=== PATIENT | male | born 1965 | race Caucasian/White ===

== ENCOUNTER 2016-11-27 12:26 | Inpatient (IN) | payer MEDICARE ==
[2016-11-27] MEDS ORDERED: ONDANSETRON ODT 4 MG TAB PO PRN (14:37)
[2016-11-27 15:13] LABS: Basophils % (A) 0 %; CH 36.9; CHCM 31.5; Eosinophils # (A) 0.1 k/uL (0-0.7); Eosinophils % (A) 1 %; HCT 32.4 % (39.0-53.0); HDW 2.41; HGB 10.6 gm/dL (13.0-17.5); Hypochromasia Slight; Luc # (Auto) 0.13; Luc % (Auto) 1; Lymphocytes # (A) 1.2 k/uL (1.0-4.8); Lymphocytes % (A) 8 %; MCH 38.5 pg (25.0-35.0); MCHC 32.7 g/dL (31.0-37.0); MCV 117.6 fL (80.0-100.0); Macrocytosis Marked; Mean Platelet Volume 7.8; Monocytes # (A) 0.6 k/uL (0-1.0); Monocytes % (A) 4 %; Neutrophils # (A) 12.8 k/uL (1.3-7.7); Neutrophils % (A) 87 %; RBC 2.76 m/uL (4.30-5.90); RDW 14.6 % (11.5-15.5); WBC 14.7 k/uL (3.8-10.6); WBC (Perox) 14.85
[2016-11-27] MEDS: PROPRANOLOL 10 MG TAB PO SCH (15:14)
[2016-11-27] MEDS: FUROSEMIDE 40 MG TAB PO SCH (15:14)
[2016-11-27 15:26] LABS: INR 1.7 (<1.2); Prothrombin Time 16.3 sec (9.0-12.0)
[2016-11-27 15:38] LABS: Manual Review Performed
[2016-11-27 16:02] LABS: Anion Gap 9 mmol/L; Blood Urea Nitrogen 12 mg/dL (9-20); Calcium 7.9 mg/dL (8.4-10.2); Carbon Dioxide 25 mmol/L (22-30); Chloride 94 mmol/L (98-107); Glucose 178 mg/dL (74-99); Non-African American GFR(MDRD) >60 (>60 ml/min/1.73 sqM); Sodium 128 mmol/L (137-145)
[2016-11-27] MEDS ORDERED: PHYTONADIONE ORAL 5 MG/5 ML ORAL.SYRG PO STA (17:15)
[2016-11-27] MEDS: MORPHINE SULFATE 2 MG/ML SYRINGE IVP PRN (18:48)
[2016-11-27] MEDS: TAMSULOSIN 0.4 MG CAP.ER.24H PO SCH (20:55)
[2016-11-28] MEDS: MORPHINE SULFATE 2 MG/ML SYRINGE IVP PRN ×3 (04:52→22:18)
[2016-11-28] MEDS: PROPRANOLOL 10 MG TAB PO SCH ×2 (06:54→17:17)
[2016-11-28] MEDS: SPIRONOLACTONE 25 MG TAB PO SCH (08:02)
[2016-11-28] MEDS: FUROSEMIDE 40 MG TAB PO SCH (08:02)
[2016-11-28 09:02] LABS: INR 1.7 (<1.2)
--- NOTE | 2016-11-28 09:47 | HP ---
HISTORY AND PHYSICAL CHIEF COMPLAINT: A 51-year-old, white male, admitted with a severe ascitic fluid wave and liver failure. HISTORY OF PRESENT ILLNESS: This is a 51-year-old, white male, with severe intractable abdominal pain. Admitted for on emergency basis. He is unable to take care of pain and swelling in his abdomen. He has end-stage liver failure despite taking Aldactone at home and Lasix. HOME MEDICATIONS: Please see list. REVIEW OF SYSTEMS: PSYCH: Anxious and nervous, kind of depressed. CARDIAC: Negative. PULMONARY: Negative. VASCULAR: As mentioned above. GI: As mentioned above. IMMUNE: Negative. INTEGUMENT: Negative. LABS: Labs show an elevated INR 1.7. Vitamin K has been given. PHYSICAL EXAMINATION: Temp 97.8, O2 saturation 93% to 94% on room air. Blood pressure is 80s to 90s systolic over 50s to 60s, respiratory rate 18 to 20, pulse is 70 to 75. CARDIOVASCULAR: S1, S2. LUNGS; Transmitted upper airway sounds. Decreased breath sounds x4. GI: Distended abdomen. Fluid wave positive. . OPHTHALMOLOGIC: Pupils equal, round and reactive to light and accommodation. NEUROLOGIC: Alert and oriented x3. ASSESSMENT: 1. Acute liver failure. 2. Acute ascites. 3. Elevated INR. 4. Hyper coagulopathy due to liver failure. 5. Multiple medical conditions. Please see further orders. Hyponatremia will be treated also. Hypocalcemia treated also. Possible diabetes mellitus. Please see further orders. MMODL / IJN: [id number] /
[2016-11-28] MEDS ORDERED: PHYTONADIONE 10 MG in SODIUM CHLORIDE 0.9% 50 ML IVPB STA (10:21)
[2016-11-28 14:51] VITALS: BMI 24.0
--- NOTE | 2016-11-28 15:20 | US ---
Therapeutic paracentesis. DATE OF EXAM: 11/28/2016 CLINICAL HISTORY: Ascites The procedure was discussed with the patient. The risks, complications, benefits, and alternatives we re discussed and any questions were answered. Informed consent was obtained. The patient was placed s upine on the ultrasound table and prepped and draped in the usual sterile fashion. All elements of maximal barrier technique were utilized. Under ultrasound guidance, access into the right lower quadrant was obtained, via the paracentesis catheter system and direct ultrasound guidanc e. Approximately 6.5 liters of straw-colored fluid was removed. The patient was stable throughout the pr ocedure and remained stable upon discharge from Department of Radiology. IMPRESSION: Successful therapeutic paracentesis under ultrasound guidance.
[2016-11-28] MEDS: TAMSULOSIN 0.4 MG CAP.ER.24H PO SCH (21:08)
[2016-11-29] MEDS: MORPHINE SULFATE 2 MG/ML SYRINGE IVP PRN ×3 (06:08→15:21)
[2016-11-29] MEDS: PROPRANOLOL 10 MG TAB PO SCH ×2 (06:15→16:10)
[2016-11-29] MEDS: FUROSEMIDE 40 MG TAB PO SCH (07:57)
[2016-11-29] MEDS: SPIRONOLACTONE 25 MG TAB PO SCH (07:57)
[2016-11-29 08:06] VITALS: RESP 16
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
[2016-11-29 13:42] LABS: Basophils % (A) 0 %; CH 37.5; CHCM 32.2; Eosinophils # (A) 0.2 k/uL (0-0.7); Eosinophils % (A) 1 %; HDW 2.46; HGB 10.1 gm/dL (13.0-17.5); Luc # (Auto) 0.13; Luc % (Auto) 1; Lymphocytes # (A) 1.2 k/uL (1.0-4.8); Lymphocytes % (A) 10 %; MCHC 32.5 g/dL (31.0-37.0); MCV 117.1 fL (80.0-100.0); Macrocytosis Marked; Mean Platelet Volume 7.6; Monocytes # (A) 0.7 k/uL (0-1.0); Monocytes % (A) 6 %; Neutrophils # (A) 10.4 k/uL (1.3-7.7); Neutrophils % (A) 82 %; RBC 2.65 m/uL (4.30-5.90); RDW 14.1 % (11.5-15.5); WBC 12.7 k/uL (3.8-10.6); WBC (Perox) 12.59
[2016-11-29 14:01] LABS: ALT 61 U/L (21-72); AST 145 U/L (17-59); Alkaline Phosphatase 143 U/L (38-126); Anion Gap 9 mmol/L; Blood Urea Nitrogen 11 mg/dL (9-20); Calcium 7.4 mg/dL (8.4-10.2); Carbon Dioxide 30 mmol/L (22-30); Chloride 89 mmol/L (98-107); Glucose 125 mg/dL (74-99); Non-African American GFR(MDRD) >60 (>60 ml/min/1.73 sqM); Sodium 128 mmol/L (137-145); Total Bilirubin 6.8 mg/dL (0.2-1.3); Total Protein 6.6 g/dL (6.3-8.2)
[2016-11-29 14:12] LABS: Potassium 3.1 mmol/L (3.5-5.1)
[2016-11-29 14:16] LABS: Manual Review Performed
[2016-11-29 14:32] LABS: Hepatitis B Surface Ag Index 0.05
[2016-11-29 14:37] LABS: Hepatitis B Core IgM Index 0.04
[2016-11-29 14:49] LABS: Hepatitis C Virus IgG Ab Negative (Negative); Hepatitis C Virus IgG Index 0.39
[2016-11-29 16:40] VITALS: BP 99/61; PULSE 93; TEMP 97.4
== END 2016-11-29 17:44 | disposition home health service (06) | DRG 433 ==
LOC: 4MS4W 12:48
PROVIDERS: ADMIT Family Medicine; ATTEND Family Medicine
PROC: 0W9G3ZZ Drainage of Peritoneal Cavity, Percutaneous Approach (ICD-10-PCS; principal; 2016-11-28)
DX: K70.31 Alcoholic cirrhosis of liver with ascites (principal); E87.1 Hypo-osmolality and hyponatremia; K70.11 Alcoholic hepatitis with ascites; K76.6 Portal hypertension; D68.4 Acquired coagulation factor deficiency; E83.51 Hypocalcemia; K70.40 Alcoholic hepatic failure without coma; F10.20 Alcohol dependence, uncomplicated; I86.4 Gastric varices; F32.9 Major depressive disorder, single episode, unspecified; N42.9 Disorder of prostate, unspecified; R41.3 Other amnesia; G25.0 Essential tremor; G47.00 Insomnia, unspecified; R29.6 Repeated falls; Z91.81 History of falling; Z71.3 Dietary counseling and surveillance; Z79.899 Other long term (current) drug therapy; Z87.19 Personal history of other diseases of the digestive system; Z51.81 Encounter for therapeutic drug level monitoring; Z87.820 Personal history of traumatic brain injury; Z80.41 Family history of malignant neoplasm of ovary
CPT/HCPCS: 49083; 80048; 80053; 80074; 82105; 82140; 85025; 85610

== ENCOUNTER 2016-12-03 12:45 | Day surgery (SDC) | payer MEDICARE ==
[2016-12-03 13:44] VITALS: RESP 14; TEMP 97.9
[2016-12-03 13:48] LABS: Mean Platelet Volume 7.2
[2016-12-03 13:57] LABS: Non-African American GFR(MDRD) >60 (>60 ml/min/1.73 sqM)
[2016-12-03 14:00] LABS: INR 1.6 (<1.2); Prothrombin Time 15.7 sec (9.0-12.0)
[2016-12-03] MEDS: ALBUMIN HUMAN 25% 50 ML in EMPTY BAG 1 BAG IVPB SCH ×3 (14:46→15:22)
[2016-12-03 15:34] VITALS: BP 105/66; PULSE 95
--- NOTE | 2016-12-04 08:26 | US ---
Therapeutic paracentesis. DATE OF EXAM: 12/03/2016 CLINICAL HISTORY: Ascites The procedure was discussed with the patient. The risks, complications, benefits, and alternatives we re discussed and any questions were answered. Informed consent was obtained. The patient was placed s upine on the ultrasound table and prepped and draped in the usual sterile fashion. All elements of maximal barrier technique were utilized. Under ultrasound guidance, access into the right lower quadrant was obtained, via the paracentesis catheter system and direct ultrasound guidanc e. Approximately 4.8 liters of straw-colored fluid was removed. The patient was stable throughout the pr ocedure and remained stable upon discharge from Department of Radiology. IMPRESSION: Successful therapeutic paracentesis under ultrasound guidance.
== END 2016-12-03 15:54 | disposition home or self-care (01) ==
LOC: RADPROMAIN 12:45
PROVIDERS: ATTEND Family Medicine
DX: R18.8 Other ascites (principal)
CPT/HCPCS: 82565; 85049; 85610; 96365; 49083; P9047

== ENCOUNTER 2016-12-11 11:35 | Day surgery (SDC) | payer MEDICARE ==
[2016-12-11 12:28] LABS: Mean Platelet Volume 7.8
[2016-12-11 12:35] LABS: Non-African American GFR(MDRD) >60 (>60 ml/min/1.73 sqM)
[2016-12-11 13:36] LABS: INR 1.6 (<1.2); Prothrombin Time 15.1 sec (9.0-12.0)
[2016-12-11 13:54] VITALS: TEMP 98.1
[2016-12-11 14:06] VITALS: RESP 16
--- NOTE | 2016-12-11 14:56 | US ---
Therapeutic paracentesis. DATE OF EXAM: 12/11/2016 CLINICAL HISTORY: Ascites The procedure was discussed with the patient. The risks, complications, benefits, and alternatives we re discussed and any questions were answered. Informed consent was obtained. The patient was placed s upine on the ultrasound table and prepped and draped in the usual sterile fashion. All elements of maximal barrier technique were utilized. Under ultrasound guidance, access into the right lower quadrant was obtained, via the paracentesis catheter system and direct ultrasound guidanc e. Approximately 3.4 liters of straw-colored fluid was removed. The patient was stable throughout the pr ocedure and remained stable upon discharge from Department of Radiology. IMPRESSION: Successful therapeutic paracentesis under ultrasound guidance.
[2016-12-11 15:51] VITALS: BP 92/54; PULSE 99
== END 2016-12-11 15:00 | disposition home or self-care (01) ==
LOC: RADPROMAIN 11:35
PROVIDERS: ATTEND Family Medicine
DX: R18.8 Other ascites (principal)
CPT/HCPCS: 49083; 82565; 85049; 85610

== ENCOUNTER 2017-01-03 12:21 | Day surgery (SDC) | payer MEDICARE ==
[2017-01-03 13:19] VITALS: RESP 14; TEMP 98.1
[2017-01-03 13:21] LABS: CH 34.7; CHCM 32.6; HCT 32.8 % (39.0-53.0); HDW 2.62; HGB 10.6 gm/dL (13.0-17.5); MCH 34.6 pg (25.0-35.0); MCHC 32.4 g/dL (31.0-37.0); Macrocytosis Moderate; Mean Platelet Volume 7.2; RBC 3.06 m/uL (4.30-5.90); RDW 13.4 % (11.5-15.5); WBC 7.4 k/uL (3.8-10.6)
[2017-01-03 13:28] LABS: MCV 106.9 fL (80.0-100.0)
[2017-01-03 13:32] LABS: ALT 38 U/L (21-72); AST 68 U/L (17-59); Alkaline Phosphatase 129 U/L (38-126); Anion Gap 10 mmol/L; Blood Urea Nitrogen 9 mg/dL (9-20); Calcium 8.3 mg/dL (8.4-10.2); Carbon Dioxide 28 mmol/L (22-30); Chloride 94 mmol/L (98-107); Glucose 124 mg/dL (74-99); Non-African American GFR(MDRD) >60 (>60 ml/min/1.73 sqM); Potassium 3.2 mmol/L (3.5-5.1); Sodium 132 mmol/L (137-145); Total Bilirubin 2.3 mg/dL (0.2-1.3); Total Protein 7.3 g/dL (6.3-8.2)
[2017-01-03 13:46] LABS: INR 1.3 (<1.2); Partial Thromboplastin Time 26.1 sec (22.0-30.0); Prothrombin Time 13.1 sec (9.0-12.0)
[2017-01-03] MEDS: ALBUMIN HUMAN 25% 50 ML in EMPTY BAG 1 BAG IVPB SCH ×3 (14:29→15:12)
[2017-01-03 14:35] VITALS: BP 100/67
[2017-01-03 14:50] VITALS: PULSE 81
--- NOTE | 2017-01-03 15:49 | US ---
EXAMINATION TYPE: US paracentesis abd w/image DATE OF EXAM: 01/03/2017 COMPARISON: NONE HISTORY: Ascites. PROCEDURE: Maximal barrier technique was utilized. The skin overlying a suitable pocket of fluid was localized with ultrasound and the overlying skin was prepped and draped. Ultrasound was utilized with sterile technique. Lidocaine was used for local anesthesia and a skin rosie made with a scalpel. Catheter was advanced under direct ultrasound guidance into a suitable pocket of fluid and approximately 4.5 liter s of serous fluid were removed. Catheter was withdrawn and hemostasis achieved. There is no immedia te complication; the patient is discharged in stable condition. IMPRESSION: STATUS POST ULTRASOUND GUIDED PARACENTESIS FOR PALLIATION OF ASCITES. THIS PROCEDURE WA S PERFORMED BY THE UNDERSIGNED.
== END 2017-01-03 15:05 | disposition home or self-care (01) ==
LOC: RADPROMAIN 12:21
DX: R18.8 Other ascites (principal); K76.9 Liver disease, unspecified
CPT/HCPCS: 49083; 80053; 82140; 85027; 85610; 85730; 96365; P9047

== ENCOUNTER 2017-01-31 09:05 | Day surgery (SDC) | payer MEDICARE ==
[2017-01-31 09:46] LABS: Mean Platelet Volume 7.3
[2017-01-31 09:48] LABS: Non-African American GFR(MDRD) >60 (>60 ml/min/1.73 sqM)
[2017-01-31 09:51] LABS: INR 1.2 (<1.2); Partial Thromboplastin Time 28.3 sec (22.0-30.0); Prothrombin Time 12.3 sec (9.0-12.0)
[2017-01-31 11:04] VITALS: RESP 16
[2017-01-31 11:46] VITALS: BP 114/73; PULSE 77
--- NOTE | 2017-01-31 11:53 | US ---
EXAMINATION TYPE: US paracentesis abd w/image DATE OF EXAM: 01/31/2017 COMPARISON: NONE HISTORY: Ascites. PROCEDURE: Maximal barrier technique was utilized. The skin overlying a suitable pocket of fluid was localized with ultrasound and the overlying skin was prepped and draped. Ultrasound was utilized with sterile technique. Lidocaine was used for local anesthesia and a skin rosie made with a scalpel. Catheter was advanced under direct ultrasound guidance into a suitable pocket of fluid and approximately 3.2 liter s of serous fluid were removed. Catheter was withdrawn and hemostasis achieved. There is no immedia te complication; the patient is discharged in stable condition. IMPRESSION: STATUS POST ULTRASOUND GUIDED PARACENTESIS FOR PALLIATION OF ASCITES. THIS PROCEDURE WA S PERFORMED BY THE UNDERSIGNED.
== END 2017-01-31 11:35 | disposition home or self-care (01) ==
LOC: RADPROMAIN 09:05
PROVIDERS: ATTEND Physician Assistant
DX: R18.8 Other ascites (principal); K76.9 Liver disease, unspecified
CPT/HCPCS: 36415; 49083; 82565; 85049; 85610; 85730

== ENCOUNTER 2017-02-13 08:57 | Day surgery (SDC) | payer MEDICARE ==
[2017-02-13 09:12] VITALS: RESP 20; TEMP 98.1
[2017-02-13 09:49] LABS: Mean Platelet Volume 7.1
[2017-02-13 09:52] LABS: Non-African American GFR(MDRD) >60 (>60 ml/min/1.73 sqM)
[2017-02-13 09:58] LABS: INR 1.2 (<1.2); Partial Thromboplastin Time 26.5 sec (22.0-30.0); Prothrombin Time 12.2 sec (9.0-12.0)
[2017-02-13 10:56] VITALS: BP 115/78; PULSE 87
--- NOTE | 2017-02-13 13:31 | US ---
EXAMINATION TYPE: US paracentesis abd w/image DATE OF EXAM: 02/13/2017 COMPARISON: NONE HISTORY: Ascites. PROCEDURE: Maximal barrier technique was utilized. The skin overlying a suitable pocket of fluid was localized with ultrasound and the overlying skin was prepped and draped. Ultrasound was utilized with sterile technique. Lidocaine was used for local anesthesia and a skin rosie made with a scalpel. Catheter was advanced under direct ultrasound guidance into a suitable pocket of fluid and approximately 2.4 liter s of serous fluid were removed. Catheter was withdrawn and hemostasis achieved. There is no immedia te complication; the patient is discharged in stable condition. IMPRESSION: STATUS POST ULTRASOUND GUIDED PARACENTESIS FOR PALLIATION OF ASCITES. THIS PROCEDURE WA S PERFORMED BY THE UNDERSIGNED.
== END 2017-02-13 11:10 | disposition home or self-care (01) ==
LOC: RADPROMAIN 08:57
PROVIDERS: ATTEND Physician Assistant
DX: R18.8 Other ascites (principal); K76.9 Liver disease, unspecified
CPT/HCPCS: 36415; 49083; 82565; 85049; 85610; 85730

== ENCOUNTER → 2017-02-13 | Outpatient (CLI) | payer MEDICARE ==
[2017-02-13 12:23] LABS: Appearance,Urine Clear (Clear); Bilirubin,Urine Negative (Negative); Glucose,Urine (UA) Negative (Negative); Ketones,Urine Negative (Negative); Leukocyte Esterase,Urine Negative (Negative); Nitrite,Urine Negative (Negative); Protein,Urine Negative (Negative); Specific Gravity,Urine 1.011 (1.001-1.035); UA Billing (MACRO vs. MICRO) CHEM; Urobilinogen,Urine <2.0 mg/dL (<2.0)
== END | disposition home or self-care (01) ==
LOC: LABWHC1 11:13
PROVIDERS: ATTEND Psychiatry & Neurology Pain Medicine
DX: S06.2X9D Diffuse traumatic brain injury with loss of consciousness of unspecified duration, subsequent encounter (principal); H02.409 Unspecified ptosis of unspecified eyelid; G89.4 Chronic pain syndrome; Z79.899 Other long term (current) drug therapy
CPT/HCPCS: 81003

== ENCOUNTER → 2017-04-16 | Outpatient (CLI) | payer MEDICARE ==
--- NOTE | 2017-04-17 07:06 | USB ---
Reason for exam: clinical finding. Indicated problem(s): pain in both breasts. Physical Findings: Nurse Summary: Patient complains of left breast retroareolar lump x 1 month, bilateral breast pain (nurse mj). US Breast BILAT Right breast ultrasound includes all four quadrants, the retroareolar region and axilla. Finding demonstrates a 1.0 x 0.6 x 1.8cm solid lesion at the posterior nipple, appearance of gynecomastia. Left breast ultrasound includes all four quadrants, the retroareolar region and axilla. Finding demonstrates a 1.9 x 0.9 x 2.4cm solid lesion at the posterior nipple, appearance of gynecomastia. Greater in the left breast. These results were verbally communicated with the patient and result sheet given to the patient on 04/16/17. ASSESSMENT: Benign, BI-RAD 2 RECOMMENDATION: Clinical management of both breasts. Manage patient on a clinical basis.
== END | disposition home or self-care (01) ==
LOC: RADUSWWP 14:57
PROVIDERS: ATTEND Internal Medicine Hematology & Oncology
DX: N64.4 Mastodynia (principal); D24.9 Benign neoplasm of unspecified breast

== ENCOUNTER → 2017-05-06 | Outpatient (CLI) | payer MEDICARE ==
[2017-05-06 14:52] LABS: Basophils % (A) 1 %; Eosinophils # (A) 0.2 k/uL (0-0.7); Eosinophils % (A) 4 %; HCT 34.9 % (39.0-53.0); HGB 10.8 gm/dL (13.0-17.5); Hypochromasia Slight; Lymphocytes # (A) 1.7 k/uL (1.0-4.8); Lymphocytes % (A) 36 %; MCH 28.6 pg (25.0-35.0); MCHC 31.1 g/dL (31.0-37.0); MCV 92.1 fL (80.0-100.0); Mean Platelet Volume 6.6; Monocytes # (A) 0.3 k/uL (0-1.0); Monocytes % (A) 6 %; Neutrophils # (A) 2.4 k/uL (1.3-7.7); Neutrophils % (A) 51 %; Platelet Count 227 k/uL (150-450); RBC 3.78 m/uL (4.30-5.90); RDW 13.9 % (11.5-15.5); WBC 4.7 k/uL (3.8-10.6)
[2017-05-06 20:19] LABS: Anti-DNA, DS unit <1.0 IU/mL; Cyclic Citrullinated Pep IgG NEGATIVE (NEGATIVE); DNA Double-Stranded NEGATIVE (NEGATIVE); RNP <0.2 AI
== END | disposition home or self-care (01) ==
LOC: LABWHC1 13:37
PROVIDERS: ATTEND Specialist
DX: M25.50 Pain in unspecified joint (principal)
CPT/HCPCS: 36415; 82085; 82550; 85025; 86038; 86160; 86200; 86225; 86235

== ENCOUNTER → 2017-05-28 | Outpatient (CLI) | payer MEDICARE | END | disposition home or self-care (01) | LOC: CPPFTMAIN 12:08 | PROVIDERS: ATTEND Family Medicine | DX: G47.33 Obstructive sleep apnea (adult) (pediatric) (principal) | CPT/HCPCS: 94060; 94726; 94729 ==

== ENCOUNTER → 2017-07-24 | Outpatient (CLI) | payer MEDICARE ==
[2017-07-24 15:43] LABS: HCT 37.5 % (39.0-53.0); HGB 12.5 gm/dL (13.0-17.5); MCH 29.6 pg (25.0-35.0); MCHC 33.3 g/dL (31.0-37.0); MCV 88.8 fL (80.0-100.0); Mean Platelet Volume 7.1; Platelet Count 198 k/uL (150-450); RBC 4.22 m/uL (4.30-5.90); RDW 14.1 % (11.5-15.5); WBC 6.4 k/uL (3.8-10.6)
[2017-07-24 16:12] LABS: ALT 43 U/L (21-72); AST 38 U/L (17-59); Albumin 4.3 g/dL (3.5-5.0); Alkaline Phosphatase 58 U/L (38-126); Anion Gap 13 mmol/L; Blood Urea Nitrogen 20 mg/dL (9-20); Calcium 9.2 mg/dL (8.4-10.2); Carbon Dioxide 26 mmol/L (22-30); Chloride 103 mmol/L (98-107); Glucose 95 mg/dL (74-99); Potassium 4.2 mmol/L (3.5-5.1); Sodium 142 mmol/L (137-145); Total Bilirubin 0.4 mg/dL (0.2-1.3); Total Protein 7.1 g/dL (6.3-8.2)
== END ==
LOC: LABT 15:16
DX: K70.31 Alcoholic cirrhosis of liver with ascites (principal)
CPT/HCPCS: 80053; 82105; 85027

== ENCOUNTER → 2018-01-23 | Outpatient (CLI) | payer MEDICARE ==
[2018-01-23 16:42] LABS: Basophils % (A) 1 %; Eosinophils # (A) 0.2 k/uL (0-0.7); Eosinophils % (A) 2 %; HCT 45.7 % (39.0-53.0); HGB 14.2 gm/dL (13.0-17.5); Lymphocytes # (A) 3.2 k/uL (1.0-4.8); Lymphocytes % (A) 38 %; MCH 30.1 pg (25.0-35.0); MCHC 31.1 g/dL (31.0-37.0); MCV 96.8 fL (80.0-100.0); Mean Platelet Volume 6.6; Monocytes # (A) 0.5 k/uL (0-1.0); Monocytes % (A) 5 %; Neutrophils # (A) 4.4 k/uL (1.3-7.7); Neutrophils % (A) 52 %; Platelet Count 198 k/uL (150-450); RBC 4.72 m/uL (4.30-5.90); RDW 13.7 % (11.5-15.5); WBC 8.5 k/uL (3.8-10.6)
[2018-01-24 02:56] LABS: Albumin 4.5 g/dL (3.80-4.90); Albumin/Globulin Ratio 1.96 (1.20-2.10); Anion Gap 10.8 mmol/L (4.00-12.00); Calcium 9.2 mg/dL (8.7-10.3); Carbon Dioxide 27.2 mmol/L (21.6-31.8); Globulin 2.3 g/dL (2.1-3.7); Total Bilirubin 0.5 mg/dL (0.2-1.2); Total Protein 6.8 g/dL (6.2-8.2)
== END ==
LOC: LABWHC1 15:24
DX: K70.31 Alcoholic cirrhosis of liver with ascites (principal)
CPT/HCPCS: 36415; 80053; 82105; 85025

== ENCOUNTER → 2019-04-06 | Outpatient (CLI) | payer MEDICARE ==
[2019-04-06 14:59] LABS: Basophils % (A) 0 %; Eosinophils # (A) 0.1 k/uL (0-0.7); Eosinophils % (A) 2 %; HCT 42.6 % (39.0-53.0); HGB 14.1 gm/dL (13.0-17.5); Lymphocytes # (A) 1.9 k/uL (1.0-4.8); Lymphocytes % (A) 33 %; MCH 30.9 pg (25.0-35.0); MCHC 33.2 g/dL (31.0-37.0); MCV 92.9 fL (80.0-100.0); Mean Platelet Volume 6.9; Monocytes # (A) 0.3 k/uL (0-1.0); Monocytes % (A) 5 %; Neutrophils # (A) 3.4 k/uL (1.3-7.7); Neutrophils % (A) 58 %; Platelet Count 272 k/uL (150-450); RBC 4.58 m/uL (4.30-5.90); RDW 12.5 % (11.5-15.5); WBC 5.8 k/uL (3.8-10.6)
[2019-04-06 15:19] LABS: ALT 27 U/L (4-49); AST 37 U/L (17-59); African American GFR (CKD) >90 (>60 ml/min/1.73 sqM); Albumin 4.7 g/dL (3.5-5.0); Albumin/Globulin Ratio 1.5; Alkaline Phosphatase 54 U/L (38-126); Anion Gap 10 mmol/L; Blood Urea Nitrogen 17 mg/dL (9-20); Calcium 9.3 mg/dL (8.4-10.2); Carbon Dioxide 27 mmol/L (22-30); Chloride 105 mmol/L (98-107); Globulin 3.2 g/dL; Glucose 101 mg/dL (74-99); Non-African American GFR(CKD) >90 (>60 ml/min/1.73 sqM); Potassium 4.4 mmol/L (3.5-5.1); Sodium 142 mmol/L (137-145); Total Bilirubin 0.4 mg/dL (0.2-1.3); Total Protein 7.9 g/dL (6.3-8.2)
== END | disposition home or self-care (01) ==
LOC: LABWHC1 14:29
PROVIDERS: ATTEND Family Medicine
DX: I10 Essential (primary) hypertension (principal); B89 Unspecified parasitic disease; R10.9 Unspecified abdominal pain; Z79.899 Other long term (current) drug therapy
CPT/HCPCS: 36415; 80053; 82105; 82140; 83036; 85025

== ENCOUNTER → 2021-03-07 | Outpatient (CLI) | payer MEDICARE ==
[2021-03-07 19:08] LABS: Basophils # (A) 0.03 X 10*3/uL (0.00-0.10); Basophils % (A) 0.6 %; HCT 44.1 % (39.6-50.0); HGB 13.8 g/dL (13.0-17.0); Lymphocytes # (A) 1.89 X 10*3/uL (0.90-5.00); Lymphocytes % (A) 37.4 %; MCH 30.5 pg (27.0-32.0); MCHC 31.3 g/dL (32.0-37.0); MCV 97.4 fL (80.0-97.0); Mean Platelet Volume 10.8 fL (9.5-12.2); Monocytes # (A) 0.36 X 10*3/uL (0.20-1.00); Monocytes % (A) 7.1 %; Neutrophils # (A) 2.66 X 10*3/uL (1.80-7.70); Neutrophils % (A) 52.7 %; Platelet Count 210 X 10*3/uL (140-440); RBC 4.53 X 10*6/uL (4.40-5.60); RDW 12.4 % (11.5-14.5); WBC 5.05 X 10*3/uL (4.50-10.00)
[2021-03-07 22:39] LABS: African American GFR (CKD) 116.6 (60.0-200.0); Albumin 5.2 g/dL (3.8-4.9); Albumin/Globulin Ratio 2.08 (1.60-3.17); Anion Gap 16.2 mmol/L (10.00-18.00); BUN/Creat Ratio 18.5 Ratio (12.00-20.00); Blood Urea Nitrogen 14.8 mg/dL (9.0-27.0); Calcium 9.6 mg/dL (8.7-10.3); Carbon Dioxide 23.8 mmol/L (20.0-27.5); Folate, Serum 10.6 ng/mL (4.40-31.00); Globulin 2.5 g/dL (1.6-3.3); Magnesium 2.2 mg/dL (1.5-2.4); Non-African American GFR(CKD) 100.6 (60.0-200.0); Potassium 4.6 mmol/L (3.5-5.5); Total Bilirubin 0.3 mg/dL (0.30-1.20); Total Protein 7.7 g/dL (6.2-8.2)
[2021-03-07 22:42] LABS: Cancer Antigen 19-9 <2.0 U/mL (0.0-34.9)
== END | disposition home or self-care (01) ==
LOC: LABWHC1 12:57
PROVIDERS: ATTEND Family Medicine
DX: I10 Essential (primary) hypertension (principal); B89 Unspecified parasitic disease; Z79.899 Other long term (current) drug therapy; E55.9 Vitamin D deficiency, unspecified; R97.8 Other abnormal tumor markers
CPT/HCPCS: 36415; 80053; 82105; 82306; 82607; 82746; 83516; 83735; 84443; 85025; 86301